=== PATIENT | female | born 2000 ===

== ENCOUNTER 2021-11-24 09:45 | Outpatient (RCR) | payer OTHER, SELFPAY ==
[2021-11-08 12:55] LABS: Amphetamine Screen Urine Not Detected (Not Detect); Barbiturates, Urine Not Detected (Not Detect); Benzodiazepines Screen Urine Not Detected (Not Detect); Cannabinoid Screen Urine POSITIVE (Not Detect); Cocaine Screen Urine Not Detected (Not Detect); Fentanyl, urine Not Detected (Not Detect); Opiate Screen Urine Not Detected (Not Detect); Phencyclidine Screen Urine Not Detected (Not Detect)
[2021-11-08 13:04] VITALS: BP 112/60; PULSE 64
[2021-11-08 13:06] VITALS: BMI 20.7
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
--- NOTE | 2021-11-09 14:21 | PC.NURSE ---
case opened in treatment team
--- NOTE | 2021-11-14 12:31 | HO.PHPPROGNO ---
Subjective Subjective Date of Service: 11/14/21 Reason For Visit: depression,SAD Medical Problems Affecting Mental Status: No Interim History: Describes mood as ?I am doing okay ?. Reports feeling withdrawal sx of ?brain fog, out of it? since lowering Wellbutrin dose in half last week. Denies any SI/HI, no safety concerns. Medication Compliance: Yes Side effects from medications: Yes (Withdrawals from lowering dose of Wellbutrin.) Attending Groups: Yes Review of Systems Acute medical concerns: No Medical Review of Systems: unchanged Review of Systems Review of Systems Yes all other systems are reviewed and are negative Constitutional: Reports no additional constitutional complaints Mental Status Exam Mental Status Exam Narrative: NAD. Ambulation, posture normal. No abnormal movements noted. Patient Appearance: Appropriate Patient Orientation: Person, Place, Time and Situation Level of Consciousness: Appropriate Patient Behavior: Appropriate, Cooperative and Good Eye Contact Mood Description: Depressed and Anxious Affect Description: Depressed and Anxious Patient Cognition Impaired: No Ability to Follow Directions: Excellent Speech Pattern: Clear, Appropriate and Coherent Memory Description: Intact Hallucinations: None Delusions: Not Present Thought Process: Intact Thought Content: positive for Intact Depressive Symptoms: Increased Anxiety, Difficulty Sleeping, Loss of Int. in Activity, Feelings of Guilt, Unhappiness, Increased Fatigue and Loss of Energy Judgement: Fair Diagnostics Vital Signs (24Hr): BMI result Body Mass Index 20.7 Assessment & Plan Assessment & Plan (1) Major depressive disorder, recurrent, moderate: Status: Acute Code(s): F33.1 - Major depressive disorder, recurrent, moderate Assessment and Plan: Describes mood as I'm okay . Depression and anxiety present, but symptoms beginning to lessen. No SI/HI, no safety concerns. finding PHP groups helpful. Has noticed withdrawal side effects with the 1/2 dose wellbutrin, describes as brain fog, out of it . We discussed starting the lexapro now, she was in agreement. She plans to dispose of the old supply Wellbutrin 300, advised that local police department has a med disposal box. (2) Generalized anxiety disorder: Status: Acute Code(s): F41.1 - Generalized anxiety disorder Plan 1. Continue with current [facility] plan of care. 2. Start lexapro now. (10mg script sent during last visit). 3. Follow-up as per protocol. Patient educated on: diagnosis, medication risk/benefits and therapeutic strategies Reason for contiued partial hosp. stay Substantial Risk for: harm to self, inability to function, rapid decompensation and med/psych decompensation Certification I certify that partial hospital treatment is medically necessary due to the symptoms and problems resulting from the patient's mental illness and the failure to treat the patient at the partial hospital level of care would likely result in the patient requiring inpatient psychiatric care which could not be prevented at a less intensive level of care. I spent minutes with the patient and/or on the patient floor today, greater than?50% of which was spent counseling/coordinating care. Discharge Plan Discharge Attending provider: Saroj Pope Medications: New bupropion HCl 150 mg tablet extended release 24 hr 150 mg PO QAM Qty: 7 0RF escitalopram oxalate 10 mg tablet 10 mg PO DAILY Qty: 7 0RF Stand Alone Forms: Patient Portal Discharge page
--- NOTE | 2021-11-17 14:34 | HO.PHPPROGNO ---
Subjective Subjective Date of Service: 11/17/21 Reason For Visit: depression,SAD Medical Problems Affecting Mental Status: No Interim History: Patient reports mood ?okay ?. Expressed concerns regarding potential sexual side effects from Lexapro. Stopped Wellbutrin, no withdrawal side effects. Requesting possible other medication rather than Lexapro. No SI, no safety concerns. Medication Compliance: Yes Side effects from medications: No Attending Groups: Yes Review of Systems Acute medical concerns: No Medical Review of Systems: unchanged Review of Systems Review of Systems Yes all other systems are reviewed and are negative Constitutional: Reports no additional constitutional complaints Mental Status Exam Mental Status Exam Narrative: Patient in NAD. Ambulation, posture normal. No abnormal movements noted. Patient Appearance: Well Grooomed and Appropriate Patient Orientation: Person, Place, Time and Situation Level of Consciousness: Appropriate Patient Behavior: Appropriate, Cooperative and Good Eye Contact Mood Description: Appropriate (describes mood as Okay ) Affect Description: Depressed and Anxious Patient Cognition Impaired: No Ability to Follow Directions: Excellent Speech Pattern: Clear, Appropriate and Coherent Memory Description: Intact Hallucinations: None Delusions: Not Present Thought Process: Intact Thought Content: positive for Intact Depressive Symptoms: Increased Anxiety, Difficulty Sleeping, Loss of Int. in Activity, Feelings of Guilt, Unhappiness, Increased Fatigue and Loss of Energy Judgement: Fair Diagnostics Vital Signs (24Hr): BMI result Body Mass Index 20.7 Assessment & Plan Assessment & Plan (1) Major depressive disorder, recurrent, moderate: Status: Acute Code(s): F33.1 - Major depressive disorder, recurrent, moderate Assessment and Plan: Patient reports mood ?okay ?. Expressed concerns regarding potential sexual side effects from Lexapro. Reports that she is in sex therapy, and is concerned of potential that Lexapro could have on sex drive. Denies any current side effects at this time. Stopped Wellbutrin, no withdrawal side effects. We discussed rationale for tapering down Wellbutrin, including history of restrictive eating/binge eating/purging, history of binge drinking, as contraindications. She would prefer to remain off of Wellbutrin at this time. Requesting possible other medication rather than Lexapro. We discussed risk profile, side effects for Lexapro in detail. We discussed option of lowering dose to 5 mg daily, or trialing another medication. We reviewed multiple antidepressants, as they relate to sexual side effects. Patient willing to trial Trintellix at this time. Medication education provided, including risks and benefits, cost. Patient stated that she understood. No SI, no safety concerns. (2) Generalized anxiety disorder: Status: Acute Code(s): F41.1 - Generalized anxiety disorder Plan 1. Continue with current [facility] plan of care. 2. D/C Lexapro. 3. Start vortioxetine 5 mg. 4. Follow-up as per protocol. Patient educated on: diagnosis, medication risk/benefits and therapeutic strategies Informed Consent: understands Reason for contiued partial hosp. stay Substantial Risk for: harm to self, inability to function, rapid decompensation and med/psych decompensation Certification I certify that partial hospital treatment is medically necessary due to the symptoms and problems resulting from the patient's mental illness and the failure to treat the patient at the partial hospital level of care would likely result in the patient requiring inpatient psychiatric care which could not be prevented at a less intensive level of care. I spent minutes with the patient and/or on the patient floor today, greater than?50% of which was spent counseling/coordinating care. Discharge Plan Discharge Attending provider: Saroj Pope Medications: New Trintellix 5 mg tablet 5 mg PO DAILY Qty: 30 0RF Stand Alone Forms: Patient Portal Discharge page
--- NOTE | 2021-11-24 13:04 | HO.PHPPROGNO ---
Subjective Subjective Date of Service: 11/24/21 Reason For Visit: depression,SAD Interim History: Pt reports she is excited to start college next week, She reports PHP beneficial as she learned coping skill or tool she can continue working on with her OP psychotherapist. She denies SI/HI. She started trintellix 3 days ago, no side effects. She reports feeling more balanced, able to care for her self and focused on her studies. No signs of psychosis. No behavioral concerns while here on the program. Sent rx for trintellix 5mg po daily x 30 tabs. Medication Compliance: Yes Side effects from medications: No Mental Status Exam Mental Status Exam Narrative: Appearance: casually groomed, good hygiene in NAD Behavior:cooperative psychomotor: no agitation or retardation noted Speech:clear, normal rate/rhythm/volume, spontaneous Thought process:linear Thought content:no signs of psychosis or delusions, future oriented as evidenced by looking forward to start college next week Mood: more balanced Affect: brightens at times, congruent SI:none HI:none VH/AH:none Delusions:none Insight/judgment:intact x 3. Memory/cog: alert, oriented x 3. grossly intact to conversational testing. Diagnostics Vital Signs (24Hr): BMI result Body Mass Index 20.7 Assessment & Plan Assessment & Plan (1) Major depressive disorder, recurrent, moderate: Status: Acute Code(s): F33.1 - Major depressive disorder, recurrent, moderate (2) Generalized anxiety disorder: Status: Acute Code(s): F41.1 - Generalized anxiety disorder Plan Pt seen last day of PHP. Pt reports improved of symptoms of depression in that she feels more balanced less overwhelmed and able to continue studies and care for herself. No SI/HI. No problems sleeping or eating. Plans to continue OP psychotherapy, psych prescriber through PCP office. We discussed risks, benefits and alternative treatment options. Agrees to continue trintellix. No side effects. No SI/HI. No safety concerns. Sent Trintellix 5mg po daily RX #30 tabs. Certification I certify that partial hospital treatment is medically necessary due to the symptoms and problems resulting from the patient's mental illness and the failure to treat the patient at the partial hospital level of care would likely result in the patient requiring inpatient psychiatric care which could not be prevented at a less intensive level of care. I spent minutes with the patient and/or on the patient floor today, greater than?50% of which was spent counseling/coordinating care. Discharge Plan Discharge Attending provider: Saroj Pope Medications: New Trintellix 5 mg tablet 5 mg PO DAILY Qty: 30 0RF Trintellix 5 mg tablet 5 mg PO DAILY Qty: 30 0RF Stand Alone Forms: Patient Portal Discharge page Patient Education: Depression (DC)
--- NOTE | 2021-11-24 14:57 | PC.NURSE ---
Patient scheduled for routine discharge today. Patient feeling ready for discharge. Reports her mood has improved. Denied SI or thoughts to harm herself. Denied any safety issues. Reviewed patient medications with patient. Reports understanding of medication and taking as prescribed.
== END 2021-11-24 23:59 | disposition home or self-care (01) ==
LOC: HO.PHPA 09:45
PROVIDERS: Nurse Practitioner Psychiatric/Mental Health; Visit Provider Psychiatry & Neurology Psychiatry
DX: F33.1 Major depressive disorder, recurrent, moderate (principal); F41.1 Generalized anxiety disorder; Z79.899 Other long term (current) drug therapy
CPT/HCPCS: 80307; 90791; 90853